=== PATIENT | female | born 1990 | race American Indian/Alaskan Native ===

== ENCOUNTER 2018-07-27 12:41 | Outpatient (CLI) | payer BC, MEDICAID ==
[2018-07-27 14:58] VITALS: BP 113/61
--- NOTE | 2018-07-27 15:35 | Ultrasound Report ---
BIOPHYSICAL PROFILE: INDICATION: Leaking amniotic fluid. COMPARISON: None similar. TECHNIQUE: Transabdominal ultrasound with Doppler interrogation. 2 - breathing movements 2 - movements 2 - posture and tone 2 - Qualitative amniotic fluid volume 8 - TOTAL SCORE OF POSSIBLE 8 Heart Rate (bpm) 131 CONCLUSION: Findings, as above.
--- NOTE | 2018-07-28 06:56 | Ultrasound Report ---
FINAL REPORT PROCEDURE: US OB LIMITED TECHNIQUE: Real-time limited sonographic examination was performed for evaluation of amniotic fluid volume for each fetus with image documentation (1 or more fetuses). CPT 65992 HISTORY: leaking amniotic fluid COMPARISON: No prior studies are available for comparison. FINDINGS: There is a single fetus within the uterus. heart rate 131 beats per minute. 4 quadrant amniotic fluid volume measures 13.8 centimeters. No other measurements are obtained. IMPRESSION: Four quadrant amniotic fluid volume 13.8 centimeters.
== END 2018-07-27 17:10 | disposition home or self-care (01) ==
LOC: TRG 12:41
PROVIDERS: ATTEND Obstetrics & Gynecology
DX: O42.92 Full-term premature rupture of membranes, unspecified as to length of time between rupture and onset of labor (principal); O47.1 False labor at or after 37 completed weeks of gestation; Z3A.40 40 weeks gestation of pregnancy
CPT/HCPCS: 76815; 76819